=== PATIENT | female | born 1950 | race Caucasian/White ===

== ENCOUNTER → 2018-08-23 08:13 | Outpatient (CLI) | payer MEDICARE, SELFPAY ==
[2018-08-23 09:26] LABS: HDL Cholesterol 43 mg/dL (40-60); Triglycerides 367 mg/dL (35-150)
[2018-08-23 09:52] LABS: LDL Cholesterol Calculated 211 mg/dL (<100)
[2018-08-23 09:53] LABS: Cholesterol 327 mg/dL (140-199)
== END ==
PROVIDERS: PCP Nurse Practitioner Family; Visit Provider Nurse Practitioner Family
DX: G43.109 Migraine with aura, not intractable, without status migrainosus (principal); Z68.30 Body mass index [BMI] 30.0-30.9, adult
CPT/HCPCS: 36415; 80061

== ENCOUNTER → 2019-01-13 07:59 | Outpatient (CLI) | payer MEDICARE, SELFPAY ==
[2019-01-13 09:14] LABS: Cholesterol 266 mg/dL (140-199); HDL Cholesterol 48 mg/dL (40-60); LDL Cholesterol Calculated 157 mg/dL (<100); Triglycerides 307 mg/dL (35-150)
== END ==
PROVIDERS: PCP Nurse Practitioner Family; Visit Provider Nurse Practitioner Family
DX: E78.9 Disorder of lipoprotein metabolism, unspecified (principal)
CPT/HCPCS: 36415; 80061

== ENCOUNTER → 2019-12-13 08:35 | Outpatient (CLI) | payer MEDICARE, SELFPAY ==
[2019-12-13 09:09] LABS: Hemoglobin 13.4 g/dL (12.0-16.0); Mean Corpuscular HGB Conc 33.6 % (30-36); Mean Corpuscular Hemoglobin 34.6 PG (26-34); Mean Corpuscular Volume 102.9 fL (80-100); Platelet Count 220 X10^3/uL (150-400); Red Blood Cell Count 3.89 X10^6/uL (4.0-5.2); Red Cell Distribution Width 14.1 % (11.6-14.8); White Blood Cell Count 4.8 X10^3/uL (4.5-11.0)
[2019-12-13 09:26] LABS: BUN Creatinine Ratio 17.9 (6-22); Blood Urea Nitrogen 12 mg/dL (7-17); Calcium 9.6 mg/dL (8.4-10.2); Carbon Dioxide 29 mmol/L (22-32); Chloride 105 mmol/L (98-107); Cholesterol 291 mg/dL (140-199); Estimated Glomerular Filt Rate > 60.0 mL/min (>60); Glucose 99 mg/dL (80-110); HDL Cholesterol 60 mg/dL (40-60); HEMOLYSIS < 15 (0-50); LDL Cholesterol Calculated 182 mg/dL (<100); Potassium 4.5 mmol/L (3.4-5.1); Sodium 140 mmol/L (137-145); Triglycerides 245 mg/dL (35-150)
== END ==
PROVIDERS: PCP Nurse Practitioner Family; Referring Provider Nurse Practitioner Family; Visit Provider Nurse Practitioner Family
DX: Z00.00 Encounter for general adult medical examination without abnormal findings (principal); E78.2 Mixed hyperlipidemia
CPT/HCPCS: 36415; 80048; 80061; 85027

== ENCOUNTER 2023-03-29 15:27 | Emergency (ER) | payer MEDICARE, SELFPAY ==
[2023-03-29 15:32] VITALS: BP 156/74; PULSE 98; RESP 18; TEMP 36.7; O2SAT 97; BMI 26.6
--- NOTE | 2023-03-29 15:40 | ED.LOWEXIN ---
HPI - Extremity Injury (Lower) <Derrick Lemus PA-C - Last Filed: 03/29/23 16:31> General Chief Complaint: Extremity Injury, Lower Stated Complaint: L/ foot big toe may be broken Time Seen by Provider: 03/29/23 15:31 History of Present Illness HPI Narrative: This is a 72-year-old female presents emergency department complaining of left foot pain after walking stepping on a rock and injuring her left 1st and 2nd digits. She denies any numbness but reports decreased range of motion secondary to pain. She would not injure her ankle, knee, or any other part of her body. Related Data Home Medications Medication Instructions Recorded Confirmed No Known Home Medications 03/10/22 03/20/22 Allergies Allergy/AdvReac Type Severity Reaction Status Date / Time amoxicillin AdvReac itching Verified 03/29/23 15:43 Review of Systems <Derrick Lemus PA-C - Last Filed: 03/29/23 16:31> Review of Systems Narrative: GENERAL: Denies chills, fatigue, malaise, fever, sweats. HEENT: Denies sinus pain, ear pain, sore throat, difficulty swallowing, dizziness. RESPIRATORY: Denies dyspnea, cough, wheezing, hemoptysis, sputum. CARDIOVASCULAR: Denies chest pain, palpitations, orthopnea, edema, GASTROINTESTINAL: Denies nausea, vomiting, abdominal pain, diarrhea, constipation, melena. : Denies dysuria, frequency, incontinence, hematuria, urinary retention. MUSCULOSKELETAL: Left foot and toe pain SKIN: Denies rash, skin lesions, or other NEUROLOGIC: Denies weakness, headache, numbness, change in speech, confusion, seizures, incoordination. PSYCHIATRIC: No concerning psychosocial issues. 12 point review of systems is negative except for those stated above Patient History <Derrick Lemus PA-C - Last Filed: 03/29/23 16:31> Medical History Ankle pain (~2017) Mixed hyperlipidemia Surgical History Anesthesia History of appendectomy (~01/26/17) Family History Father No problems noted. Mother No problems noted. Social History Smoking Status: Former smoker Smoking Status: Former smoker Exam <Derrick Lemus PA-C - Last Filed: 03/29/23 16:31> Narrative Exam Narrative: GENERAL: Well-developed patient, in mild distress. HEAD: Atraumatic. Normocephalic. EYES: Pupils equal round and reactive. Extraocular motions intact. No scleral icterus. No injection or drainage. ENT: Nose without bleeding, purulent drainage. Throat without erythema, tonsillar hypertrophy or exudate. Airway patent. NECK: Trachea midline. Non tender CARDIOVASCULAR: Regular rate and rhythm without murmurs, gallops, or rubs. RESPIRATORY: Clear to auscultation. Breath sounds equal bilaterally. No wheezes, rales, or rhonchi. GASTROINTESTINAL: Abdomen soft, non-tender, nondistended. EXTREMITIES: Tenderness to palpation at the base of the left 1st and 2nd digits. Worse with range of motion. Neurovascularly intact throughout. 2+ capillary refill BACK: Nontender without deformity or crepitance. No flank tenderness. NEURO: AOx3. SKIN: No rash or erythema of visible areas Initial Vital Signs Initial Vital Signs: Vital Signs Temperature 98.1 F 03/29/23 15:32 Pulse Rate 98 H 03/29/23 15:32 Respiratory Rate 18 03/29/23 15:32 Blood Pressure 156/74 H 03/29/23 15:32 Pulse Oximetry 97 03/29/23 15:32 Oxygen Delivery Method Room Air 03/29/23 15:32 <Rajni Tan DO - Last Filed: 03/30/23 08:03> Initial Vital Signs Initial Vital Signs: Vital Signs Temperature 98.1 F 03/29/23 15:32 Pulse Rate 98 H 03/29/23 15:32 Respiratory Rate 18 03/29/23 15:32 Blood Pressure 156/74 H 03/29/23 15:32 Pulse Oximetry 97 03/29/23 15:32 Oxygen Delivery Method Room Air 03/29/23 15:32 Course <Derrick Lemus PA-C - Last Filed: 03/29/23 16:31> Orders Ordered: ED Orders 03/29/23 15:39 XR foot LT min 3V Stat Vital Signs Vital signs: Vital Signs - 8 hr 03/29/23 15:32 Temperature 98.1 F Pulse Rate 98 H Respiratory Rate 18 Blood Pressure 156/74 H Pulse Oximetry 97 Oxygen Delivery Method Room Air <Rajni Tan DO - Last Filed: 03/30/23 08:03> Orders Ordered: ED Orders 03/29/23 15:39 XR foot LT min 3V Stat Vital Signs Vital signs: Vital Signs - 8 hr 03/29/23 15:32 Temperature 98.1 F Pulse Rate 98 H Respiratory Rate 18 Blood Pressure 156/74 H Pulse Oximetry 97 Oxygen Delivery Method Room Air MDM - Extremity Injury (Lower) <Derrick Lemus PA-C - Last Filed: 03/29/23 16:31> Imaging Data Extremity x-ray #1: Radiologist's Impression: [address] [address] XRay Report Signed Patient: Mary Kay Jones MR#: [id number] : 1950 Acct:[id number] Age/Sex: 72 / F Date of Service: 03/29/23 Loc: ED Accession Number: [id number] Procedure: XR foot LT min 3V Ordering Provider: Derrick Lemus P.A-C PROCEDURE: XR FOOT LT MIN 3V INDICATIONS: L foot pain, worse at 1st and 2nd digits TECHNIQUE: 3 views of the foot were acquired. COMPARISON: None. FINDINGS: Bones: No fractures or dislocations. No suspicious bony lesions. Degenerative changes are seen throughout, which are most focal involving the 1st metatarsophalangeal joint. Milder degenerative changes are seen elsewhere. A moderate plantar calcaneal spur is seen. Soft tissues: No tibiotalar joint effusion. Achilles tendon appears normal. IMPRESSION: Focal 1st metatarsophalangeal joint degenerative change, with milder degenerative changes seen elsewhere. No alex acute bony abnormality is seen by plain film. Dictated by: Mario Crespo M.D. on 03/29/2023 at 15:21 Approved by: Mario Crespo M.D. on 03/29/2023 at 15:22 [facility] Narrative Medical decision making narrative: MDM * differential diagnosis includes but not limited to fracture, sprain * Prior records reviewed: Patient has not been here for similar in the past * My lab interpretation: None obtained * My imgaing interpretation: X-ray showed no fracture or other acute findings * Clinical Decision Rules/Scores evaluated: None * Independent discussions with: None ED Course: This is a 72-year-old female presents emergency department due to left foot pain after tripping over a rock. X-ray negative for fracture or other acute bony abnormality. Recommended rest, ice, compression, elevation, ibuprofen for pain Shared Decision Making: Discussed plan with the patient who is comfortable with the plan. Social Considerations: None Disposition: Discharged home Discharge Plan Departure Patient Disposition: Home Clinical Impression: Acute foot pain Activity Restrictions/Additional Instructions: Thank you for coming to the [facility] Emergency Department today. As we discussed your x-ray of your foot was negative for any fractures in your for toes. This should improve over time with rest, ice, compression, elevation, ibuprofen as needed for the pain. I hope you feel better soon. Please follow up with your primary care provider within a week if your symptoms continue. If you do not have a primary care provider please contact the [facility] Resource line at [phone]. They will ask some questions about your medical history and help you get set up with a provider in the community. Prescriptions: No Action No Known Home Medications Referrals: Tobin Rojo ARNP [Primary Care Provider] - Stand Alone Forms: Patient Portal/API ED Sign-out <Rajni Tan DO - Last Filed: 03/30/23 08:03> Cosign ED Attending Pennie Attestation: I was immediately available in the department for consultation.
[2023-03-29 16:36] VITALS: BP 154/68; PULSE 88; RESP 16; TEMP 36.7; O2SAT 98
== END 2023-03-29 16:37 | disposition home or self-care (01) ==
PROVIDERS: Emergency Provider Physician Assistant Medical; PCP Registered Nurse Diabetes Educator
DX: M79.672 Pain in left foot (principal); W22.8XXA Striking against or struck by other objects, initial encounter
CPT/HCPCS: 73630; 99281; 99283

== ENCOUNTER → 2023-05-12 13:33 | Outpatient (CLI) | payer MEDICARE, SELFPAY | PROVIDERS: PCP Registered Nurse Diabetes Educator; Visit Provider Physician Assistant | DX: R39.15 Urgency of urination (principal); R10.2 Pelvic and perineal pain | CPT/HCPCS: 87077; 87086; 87186; 87210 ==

== ENCOUNTER → 2023-07-15 11:19 | Outpatient (CLI) | payer MEDICARE, SELFPAY ==
--- NOTE | 2023-07-15 11:23 | DI.RAD.S_ITS ---
PROCEDURE: XR LUMBAR SPINE 2-3V INDICATIONS: low back pain for 1+ yr TECHNIQUE: 3 views of the lumbar spine were acquired. COMPARISON: None. FINDINGS: Bones: 5 [id number] vertebrae are present. There is normal bony alignment. No vertebral body compression fractures. No suspicious bony lesions. Disc space narrowing noted in the mid lumbar spine. Hypertrophic facet joints present in the lower lumbar spine. Soft tissues: Atherosclerotic calcification in the abdominal aorta noted without evidence of aneurysm. IMPRESSION: Degenerative disc disease and arthropathy Approved by: Mario Hargrove M.D. on 07/15/2023 at 19:11
[2023-07-15 12:17] LABS: Add Manual Diff / Slide Review NO; Basophils Absolute Auto 100 /uL (0-100); Basophils Percent Auto 2.4 % (0-2); Eosinophils Absolute Auto 0 /uL (0-450); Eosinophils Percent Auto 0.8 % (2-4); Hematocrit 40.4 % (36-46); Lymphocytes Absolute Auto 1800 /uL (1100-4500); Lymphocytes Percent Auto 36.7 % (25-40); Mean Corpuscular HGB Conc 34.7 % (30-36); Mean Corpuscular Hemoglobin 35.9 PG (26-34); Mean Corpuscular Volume 103.5 fL (80-100); Monocytes Absolute Auto 500 /uL (0-900); Neutrophils Absolute Auto 2400 /uL (1500-7000); Neutrophils Percent Auto 49.1 % (50-75); Platelet Count 153 X10^3/uL (150-400); Red Blood Cell Count 3.91 X10^6/uL (4.0-5.2); Red Cell Distribution Width 13.3 % (11.6-14.8)
[2023-07-15 12:38] LABS: Alanine Aminotransferase 34 IU/L (<35); Albumin 4.3 g/dL (3.5-5.0); Albumin Globulin Ratio 1.5 (1.0-2.8); Alkaline Phosphatase 70 U/L (38-126); Aspartate Aminotransferase 46 IU/L (14-36); BUN Creatinine Ratio 17.9 (6-22); Bilirubin Total 0.7 mg/dL (0.2-1.3); Blood Urea Nitrogen 12 mg/dL (7-17); Calcium 9.2 mg/dL (8.4-10.2); Carbon Dioxide 27 mmol/L (22-32); Chloride 103 mmol/L (98-107); Estimated Glomerular Filt Rate > 60 mL/min (>60); Globulin 2.9 g/dL (1.7-4.1); Glucose 126 mg/dL (80-110); HEMOLYSIS < 15 (0-50); Sodium 140 mmol/L (137-145); Total Protein 7.2 g/dL (6.3-8.2)
[2023-07-15 13:06] LABS: Erythrocyte Sedimentation Rate 7 MM/HR (0-20)
== END ==
PROVIDERS: PCP Registered Nurse Diabetes Educator; Referring Provider Physician Assistant; Visit Provider Physician Assistant
DX: M51.36 Other intervertebral disc degeneration, lumbar region (principal); M47.816 Spondylosis without myelopathy or radiculopathy, lumbar region; M54.50 Low back pain, unspecified
CPT/HCPCS: 36415; 72100; 80053; 85025; 85651

== ENCOUNTER → 2025-04-25 09:09 | Outpatient (CLI) | payer MEDICARE, SELFPAY ==
[2025-04-25 10:32] LABS: COVID-19 CEPHEID 4-PLEX PCR Negative (Negative); Influenza A - CEPHEID Flu A NEGATIVE (NEGATIVE); Influenza B - CEPHEID Flu B NEGATIVE (NEGATIVE)
== END ==
PROVIDERS: PCP Registered Nurse Diabetes Educator; Visit Provider Chiropractor
DX: R05.1 Acute cough (principal)
CPT/HCPCS: 87637

== ENCOUNTER → 2025-04-29 16:07 | Outpatient (CLI) | payer MEDICARE, SELFPAY ==
--- NOTE | 2025-04-29 16:09 | DI.RAD.S_ITS ---
PROCEDURE: XR CHEST 2V INDICATIONS: Shortness of breath TECHNIQUE: 2 views of the chest were acquired. COMPARISON: None. FINDINGS: Surgical changes and devices: None. Lungs and pleura: Increased pulmonary vascularity. No appreciable effusions or consolidations. Mediastinum: Mediastinal contours are normal. Heart size is prominent. Bones and chest wall: No suspicious bony abnormalities. Soft tissues appear unremarkable. IMPRESSION: Increased pulmonary vascularity suggestive of edema. Dictated by: Cande Connelly M.D. on 04/29/2025 at 16:54 Approved by: Cande Connelly M.D. on 04/29/2025 at 16:54
== END ==
LOC: RAD 16:08
PROVIDERS: PCP Registered Nurse Diabetes Educator; Referring Provider Registered Nurse; Visit Provider Registered Nurse
DX: R06.02 Shortness of breath (principal)
CPT/HCPCS: 71046

== ENCOUNTER 2025-04-29 17:38 | Emergency (ER) | payer MEDICARE, SELFPAY ==
[2025-04-29 17:46] VITALS: BP 143/82; PULSE 75; RESP 18; TEMP 36.6; O2SAT 95; BMI 29.2
--- NOTE | 2025-04-29 18:22 | EKG_ITS ---
[address] [address] Test Date: 2025-04-29 Pat Name: Mary Kay Jones Department: Room: Gender: Female Rn Bariatric: ARISTEO : 1950 Requested By: Order Number: [id number] Reading MD: Dylan Deglado Measurements Intervals Daisy Rate: 71 P: 46 [place]: 168 QRS: -28 QRSD: 82 T: 17 QT: 424 QTc: 460 Interpretive Statements Normal sinus rhythm Low voltage QRS Cannot rule out Anterior infarct , age undetermined Electronically Signed On 04-30-2025 7:22:44 PST by Dylan Delgado
[2025-04-29 18:40] LABS: Add Manual Diff / Slide Review NO; Hematocrit 40.5 % (36-46); Hemoglobin 13.8 g/dL (12.0-16.0); Lymphocytes Absolute Auto 2300 /uL (1100-4500); Mean Corpuscular HGB Conc 34.1 % (30-36); Mean Corpuscular Hemoglobin 34.1 PG (26-34); Mean Corpuscular Volume 100.0 fL (80-100); Platelet Count 235 X10^3/uL (150-400)
[2025-04-29 18:47] LABS: INR 1.1 (0.9-1.3); Prothrombin Time 11.9 SECONDS (9.4-12.5)
--- NOTE | 2025-04-29 18:48 | ED.SOB ---
HPI - SOB/Dyspnea General Chief Complaint: Shortness of Breath/Dyspnea Stated Complaint: lab work Time Seen by Provider: 04/29/25 18:07 Source: patient Mode of arrival: Ambulatory Limitations: no limitations History of Present Illness HPI Narrative: 74-year-old female with no cardiac or major medical history presents with shortness of breath for the past month. she just completed antibiotics today. Her cough has subsided but she still having some underlying shortness of breath. Related Data Previous Rx's ?Medication ?Instructions ?Recorded azithromycin 250 mg tablet See Rx Instructions PO .COMPLEX #6 04/25/25 tabs benzonatate 200 mg capsule 200 mg PO BID-TID PRN cough #15 04/25/25 caps Allergies Allergy/AdvReac Type Severity Reaction Status Date / Time amoxicillin AdvReac itching Verified 04/29/25 15:37 Review of Systems Review of Systems ROS Unobtainable: All systems reviewed & are unremarkable except as noted in HPI and below Patient History Medical History Mixed hyperlipidemia Ankle pain (~2016) Surgical History Anesthesia History of appendectomy (~01/26/17) Family History Father No problems noted. Mother No problems noted. Social History Smoking Status: Former smoker Smoking Status: Former smoker tobacco type: cigarettes alcohol intake frequency: 3 or more drinks per day Alcohol type: wine Exam Narrative Exam Narrative: General: Patient appears to be in no acute distress, acting appropriately Head: normocephalic, atraumatic, HEENT: Pupils equal round reactive, eyes tracking well, neck supple, no JVD Heart: regular rate and rhythm, no murmurs, rubs, or gallops heard Lungs: clear to auscultation, no adventitious sounds Abdomen: soft , nontender, nondistended, positive bowel sounds Neurological: no focal neurological signs, moving all extremities well, alert and oriented x3, Psych: good judgment ,good insight, mood is normal. Initial Vital Signs Initial Vital Signs: Vital Signs Temperature 97.8 F 04/29/25 17:46 Pulse Rate 75 04/29/25 17:46 Respiratory Rate 18 04/29/25 17:46 Blood Pressure 143/82 H 04/29/25 17:46 Pulse Oximetry 95 04/29/25 17:46 Oxygen Delivery Method Room Air 04/29/25 17:46 Course Orders Ordered: ED Orders 04/29/25 17:52 EKG-12 Lead Stat Measure peak expiratory flow STAT RT Consult Eval and Treat STAT 04/29/25 18:25 D Dimer Stat 04/29/25 18:29 Complete Blood Count AUTO DIFF Stat Comprehensive Metabolic Panel Stat Lactate (Lactic Acid) Stat NT-proBNP (BNP-Adult 18+) Stat Prothrombin Time INR Stat Troponin I Stat 04/29/25 18:51 XR chest 2V Stat 04/29/25 19:53 CT angio chest PE protocol Stat Vital Signs Vital signs: Vital Signs - 8 hr 04/29/25 17:46 04/29/25 21:14 Temperature 97.8 F Pulse Rate 75 78 Respiratory Rate 18 18 Blood Pressure 143/82 H 131/77 Pulse Oximetry 95 95 Oxygen Delivery Method Room Air Room Air MDM - SOB/Dyspnea Lab Data 04/29/25 18:29 04/29/25 18:29 Labs: Lab Results 04/29/25 04/29/25 Range/Units 18:25 18:29 WBC 6.0 (4.5-11.0) X10^3/uL RBC 4.05 (4.0-5.2) X10^6/uL Hgb 13.8 (12.0-16.0) g/dL Hct 40.5 (36-46) % MCV 100.0 (80-100) fL MCH 34.1 H (26-34) PG MCHC 34.1 (30-36) % RDW 12.9 (11.6-14.8) % Plt Count 235 (150-400) X10^3/uL Neut % (Auto) 41.2 L (50-75) % Lymph % (Auto) 37.8 (25-40) % [place] % (Auto) 14.4 H (3-14) % Eos % (Auto) 3.9 (2-4) % Baso % (Auto) 2.7 H (0-2) % Neut # (Auto) 2500 (6271-4755) /uL Lymph # (Auto) 2300 (5400-7428) /uL [place] # (Auto) 900 (0-900) /uL Eos # (Auto) 200 (0-450) /uL Baso # (Auto) 200 H (0-100) /uL PT 11.9 (9.4-12.5) SECONDS INR 1.1 (0.9-1.3) D-Dimer 1106 H (<500) ng/ml Sodium 140 (137-145) mmol/L Potassium 3.9 (3.4-5.1) mmol/L Chloride 105 (98-107) mmol/L Carbon Dioxide 26 (22-32) mmol/L BUN 14 (7-17) mg/dL Creatinine 0.57 (0.52-1.04) mg/dL Estimated GFR > 60 (>60) mL/min BUN/Creatinine Ratio 24.6 H (6-22) Glucose 92 (70-99) mg/dL Lactate 1.1 (0.7-2.1) mmol/L Calcium 9.5 (8.4-10.2) mg/dL Total Bilirubin 0.5 (0.2-1.3) mg/dL AST 51 H (14-36) IU/L ALT 33 (<35) IU/L Alkaline Phosphatase 89 (38-126) U/L Troponin I < 0.012 (0.01-0.034) ng/mL NT-Pro-B Natriuret Pep 29 (<125) pg/mL Total Protein 8.1 (6.3-8.2) g/dL Albumin 4.4 (3.5-5.0) g/dL Globulin 3.7 (1.7-4.1) g/dL Albumin/Globulin Ratio 1.2 (1.0-2.8) Imaging Data CT scan - chest: Radiologist's Impression: No pulmonary embolus. Findings of interstitial lung disease in a probable UIP pattern. Recommend correlation with pulmonary function testing and pulmonary consultation. Multiple mildly enlarged mediastinal and hilar lymph nodes, nonspecific, and possible reactive. No acute intrathoracic abnormality. Chest x-ray: Radiologist's Impression: Cardiomegaly with increased vascularity suggestive of edema. Overall appearance is relatively unchanged. ECG Data Interpretation: EKG shows a normal sinus rhythm, low-voltage QRS, rate of 71 beats per minute, no ME intervals, no STT wave changes no previous EKG found. MDM Narrative Medical decision making narrative: 74-year-old female who has been having some shortness of breath for the past month. Patient is eager to be discharged. No sign of a pulmonary embolus From the CTA of the chest. Patient most likely dealing with the interstitial lung disease. Advised to follow up with pulmonology and get a complete pulmonary function test done. Follow up sooner here in the ED for worsening shortness of breath. Discharge Plan Departure Patient Disposition: Home Clinical Impression: Interstitial lung disease Instructions: Interstitial Lung Disease Activity Restrictions/Additional Instructions: Most likely dealing with something called interstitial lung disease which is some inflammation and potential scarring in the lungs. You will need a follow up with a card table attendant which a referral can be done through your primary care physician. Prescriptions: No Action benzonatate 200 mg capsule 200 mg PO BID-TID PRN (Reason: cough) Qty: 15 0RF azithromycin 250 mg tablet See Rx Instructions PO .COMPLEX Qty: 6 0RF Rx Instructions: For 250 mg dose pack: take 500 mg today (day 1), then 250 mg for 4 days (days 2-5) PO Referrals: Tobin Rojo ARNP [Primary Care Provider, Medical] Stand Alone Forms: Patient Portal/API
--- NOTE | 2025-04-29 18:51 | DI.RAD.S_ITS ---
PROCEDURE: XR CHEST 2V INDICATIONS: shortness of breath TECHNIQUE: 2 views of the chest were acquired. COMPARISON: [facility], , XR CHEST 2V, 04/29/2025, 16:06. FINDINGS: Surgical changes and devices: None. Lungs and pleura: Mild increased pulmonary vascularity. No consolidations. Mediastinum: Mediastinal contours are normal. Heart size is enlarged. Bones and chest wall: No suspicious bony abnormalities. Soft tissues appear unremarkable. Remote right rib fractures. IMPRESSION: Cardiomegaly with increased vascularity suggestive of edema. Overall appearance is relatively unchanged. Dictated by: Cande Connelly M.D. on 04/29/2025 at 19:50 Approved by: Cande Connelly M.D. on 04/29/2025 at 19:50
[2025-04-29 18:52] LABS: Alanine Aminotransferase 33 IU/L (<35); Albumin 4.4 g/dL (3.5-5.0); Albumin Globulin Ratio 1.2 (1.0-2.8); Alkaline Phosphatase 89 U/L (38-126); Blood Urea Nitrogen 14 mg/dL (7-17); Calcium 9.5 mg/dL (8.4-10.2); Carbon Dioxide 26 mmol/L (22-32); Chloride 105 mmol/L (98-107); Estimated Glomerular Filt Rate > 60 mL/min (>60); Globulin 3.7 g/dL (1.7-4.1); Glucose 92 mg/dL (70-99); HEMOLYSIS < 15 (0-50); Potassium 3.9 mmol/L (3.4-5.1); Sodium 140 mmol/L (137-145); Total Protein 8.1 g/dL (6.3-8.2)
[2025-04-29 18:53] LABS: Lactate (Lactic Acid) 1.1 mmol/L (0.7-2.1)
[2025-04-29 19:04] LABS: NT-proBNP (BNP-Adult 18+) 29 pg/mL (<125); Troponin I < 0.012 ng/mL (0.01-0.034)
--- NOTE | 2025-04-29 19:53 | DI.CT.S_ITS ---
PROCEDURE: CT ANGIO CHEST PE PROTOCOL INDICATIONS: elevated d dimer, sob TECHNIQUE: After the administration of intravenous contrast, 2 mm thick sections acquired from the pulmonary apices to the posterior costophrenic angles. 3-dimensional maximum intensity projection (MIP) coronal and sagittal reformats were then acquired through the thorax. For radiation dose reduction, the following was used: automated exposure control, adjustment of mA and/or kV according to patient size. COMPARISON: None. FINDINGS: Image quality: Diagnostic. Pulmonary arteries: Pulmonary arteries are normal in size, and demonstrate no intraluminal filling defects to suggest central pulmonary embolism. Lower Neck: No enlarged lymph nodes. Thyroid: No thyroid nodules which require sonographic follow up, per consensus guidelines. Axillae: No enlarged lymph nodes. Chest Wall: Unremarkable. Bones: Degenerative change. No aggressive osseous lesion Lungs and Pleura: No pneumothorax or pleural effusion. Diffuse peripheral subpleural interstitial reticulations, most prominent at the lung bases, with areas of mild traction bronchiectasis. No definite honeycombing. Heart: Heart size is normal. No pericardial effusion. Coronary artery calcifications. Thoracic Vessels: No aortic aneurysm. Mediastinum and Danya: Multiple mildly enlarged mediastinal and hilar lymph nodes, measuring up to 1.2 cm in short axis at the precarinal station and 1.1 cm of the right upper paratracheal station. Esophagus: No wall thickening. Small hiatal hernia. Upper Abdomen: Nonobstructing stone in the left upper pole of the kidney. Visualized upper abdomen solid organs and bowel loops appear otherwise unremarkable. IMPRESSION: No pulmonary embolus. Findings of interstitial lung disease in a probable UIP pattern. Recommend correlation with pulmonary function testing and pulmonary consultation. Multiple mildly enlarged mediastinal and hilar lymph nodes, nonspecific, and possible reactive. No acute intrathoracic abnormality. Dictated by: Jade Hernandez M.D. on 04/29/2025 at 20:22 Approved by: Jade Hernandez M.D. on 04/29/2025 at 20:29
--- NOTE | 2025-04-29 21:13 | PC.NURSE ---
RN became responsible for patient care at this time, patient unwilling to participate in assessment and states she is ready to go, Dr Arthur aware and at beside.
[2025-04-29 21:14] VITALS: BP 131/77; PULSE 78; RESP 18; O2SAT 95
== END 2025-04-29 21:16 | disposition home or self-care (01) ==
PROVIDERS: Emergency Medicine; Emergency Provider Family Medicine; PCP Registered Nurse Diabetes Educator
DX: J84.9 Interstitial pulmonary disease, unspecified (principal); R06.02 Shortness of breath; Z87.891 Personal history of nicotine dependence
CPT/HCPCS: 71046; 71275; 80053; 83605; 83880; 84484; 85025; 85379; 85610; 93005; 99281; 99284; Q9967